=== PATIENT | male | born 1970 | race Caucasian/White ===

== ENCOUNTER 2022-01-25 08:51 | Inpatient (IN) ==
[2022-01-25] MEDS ORDERED: OPTIRAY 320 125ml IV ONE ×2 (09:03→10:25)
--- NOTE | 2022-01-25 09:08 | CT Scan Report ---
CT OF THE HEAD WITHOUT CONTRAST CLINICAL HISTORY: Stroke Like Symptoms. Dizzy. COMPARISON STUDY: No previous studies for comparison. TECHNIQUE: Helical axial images of the head were obtained without IV contrast. Automated exposure con trol was utilized for the study. A dose lowering technique was utilized adhering to the principles o f ALARA. FINDINGS: No acute intracranial hemorrhage, midline shift or mass effect is present. The ventricular system is unremarkable. A 8 mm hypodense focus within the anterior right thalamus is noted. Hypodensi ty within the braden is likely artifactual. The basal cisterns are patent. No extra-axial collections a re present. There are no findings to suggest acute dural sinus thrombosis or acute territorial infarc t. No significant calvarial abnormalities are present. Visualized portions of the sinuses and mastoid air cells are clear. IMPRESSION: 1. No acute intracranial findings. 2. 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 ACT 112: Negative or not required by law. Electronically signed by: Hugo Medeiros M.D. 01/25/2022 9:06 AM
[2022-01-25] MEDS ORDERED: LABETALOL HCL IV 5 MG/ML 20ML IV ONE (09:12)
[2022-01-25] MEDS ORDERED: LABETALOL HCL IV 5 MG/ML 20ML IV STA ×4 (09:12→11:13)
--- NOTE | 2022-01-25 09:14 | CT Scan Report ---
CT ANGIOGRAPHY OF THE NECK WITH CONTRAST CLINICAL HISTORY: Stroke Like Symptoms. Dizziness. Nausea. COMPARISON STUDY: No previous studies for comparison. Technique: CT angiography of the carotid and vertebral arteries was obtained using Optiray and 3D rec onstruction on an independent workstation. NASCET criteria was utilized. Automated exposure control was utilized for the study. A dose lowering technique was utilized adhering to the principles of ALA RA. CT DOSE: 1299.11 mGy.cm Findings: A segmental pulmonary embolus within the left upper lobe is partially imaged on this examin ation. No additional pulmonary emboli are identified within visualized portions of the upper chest. T here is no cervical lymphadenopathy. No acute cervical spine fracture is noted. No suspicious lesions are identified within the visualized skeletal structures. The bilateral common carotid, cervical int ernal carotid and vertebral arteries are patent. There is no stenosis. There is mild plaque within th e proximal bilateral internal carotid arteries. CTA of the head will be reported separately. Linear d ensities within the proximal bilateral cervical internal carotid arteries are probably artifactual. IMPRESSION: 1. Partially visualized segmental pulmonary embolus within the left upper lobe. A PE protocol chest C T could be obtained for further evaluation. 2. No stenosis within the bilateral common carotid, cervical internal carotid or vertebral arteries. Minimal plaque. ACT 112: Negative or not required by law. Electronically signed by: Hugo Medeiros M.D. 01/25/2022 9:12 AM
--- NOTE | 2022-01-25 09:16 | CT Scan Report ---
CTA ANGIOGRAPHY OF THE HEAD CLINICAL HISTORY: Stroke Like Symptoms. Dizziness. Vertigo. COMPARISON STUDY: No previous studies for comparison. TECHNIQUE: Helical axial images of the head were obtained following uneventful intravenous administr ation of 120 cc of Optiray. Sagittal and coronal reconstructions were viewed as well as maximal inten sity projections on an independent 3-D workstation. Automated exposure control was utilized for the study. A dose lowering technique was utilized adhering to the principles of ALARA. FINDINGS: Please note that the head CT will be reported separately. Brain volume is normal. Ventricul ar system is normal. Basal cisterns are patent. 8 mm hypodensity within the anterior right thalamus i s suggestive of an old infarct. The bilateral M1, M2, A1 and A2 segments are patent. There is moderat e calcified plaque within the bilateral cavernous carotids without stenosis. Posterior circulation is intact. There is no central vessel occlusion. There is no intracranial aneurysm. No dissection is id entified within the intracranial vessels. IMPRESSION: 1. No vessel occlusion. No intracranial aneurysm. 2. 8 mm hypodensity within the anterior right thalamus suggestive of an old infarct. ACT 112: Negative or not required by law. Electronically signed by: Hugo Medeiros M.D. 01/25/2022 9:15 AM
--- NOTE | 2022-01-25 09:17 | XRay Report ---
XR chest 1V portable CLINICAL HISTORY: Stroke Like Symptoms COMPARISON STUDY: Chest radiograph May 04, 2019. FINDINGS: Lung volumes are normal. Lungs are clear. There is no pneumothorax or pleural effusion. Car diac size is normal. Mediastinal contours are normal. There is no evidence for pulmonary edema. IMPRESSION: No acute cardiopulmonary findings. ACT 112: Negative or not required by law. Electronically signed by: Hugo Medeiros M.D. 01/25/2022 9:16 AM
--- NOTE | 2022-01-25 09:23 | Emergency Department Note ---
Impression & Plan Acute CVA (cerebrovascular accident), Acute left-sided weakness, Slurred speech, Pulmonary emboli ED Provider Note NAME: YARY FISHER AGE: 51 SEX: M : 1970 ARRIVES VIA: Ambulance INFORMANT: [Patient][ems, ] ED PROVIDER(S): [Jim Edmond MD] Patient first seen by me in the ambulance bay at 8:52 AM CHIEF COMPLAINT: Stroke HISTORY OF PRESENT ILLNESS: The patient is a 51-year-old male who woke up around 630 this morning. At around 7 AM, 1 hour and 52 minutes ago, he noticed a left facial droop and left arm and leg weakness. He slumped out of his chair. EMS was called. EMS reports left-sided weakness and a left facial droop. Blood sugar was 121. They were asking for a stroke alert, this was activated. Upon arrival in our ED, the patient has had marked improvement. The facial droop has resolved. He is still a bit weak in the left arm but his left leg feels strong. The patient has a history of some borderline hypertension, he is on no med ications though. The patient has no history of previous stroke. He has had a headache over the last couple of weeks but otherwise, has felt well. There has been no recent cough or cold or congestion. No shortness of breath or chest pain. No fever, no diarrhea or vomiting. Of note, about a week ago, the patient had something fall onto his left calf and he has been sore in the left calf ever since. He did not notice a hematoma or leg swelling. REVIEW OF SYSTEMS: See HPI for pertinent positives and negatives. A total of ten systems were reviewed and were otherwise negative. PMHx/PSHx: See Below SOCIAL HISTORY: See Below. PHYSICAL EXAM: GENERAL: Patient is in no acute distress. HEENT: No acute trauma, normocephalic atraumatic, mucous membranes moist, no nasal congestion, no scleral icterus. NECK: No stridor, no adenopathy, no meningismus, trachea is midline. LUNGS: Clear to auscultation bilaterally, no wheeze, no rhonchi, breath sounds equal. HEART: Without murmurs gallops or rubs, regular rate and rhythm. ABDOMEN: Soft, nontender, bowel sounds positive, no peritonitis. EXTREMITIES: No cyanosis or edema, full range of motion of all the joints without pain or difficulty, no signs for acute trauma. NEUROLOGIC: Awake and alert, oriented x3. The patient currently has no facial droop, there is a very subtle speech slur noted. There is no extremity drift or cerebellar dysfunction. Stroke scale value of 1 SKIN: No rash, no jaundice, no diaphoresis. DIFFERENTIAL DIAGNOSIS: Infection, dehydration, metabolic abnormality, hypo/hyperglycemia, electrolyte disturbance, anemia, hypoxia, cardiac sources, intracerebral event, toxicologic issues, stroke, TIA, as well as other pathologies. EMERGENCY DEPARTMENT COURSE/PROCEDURES: ECG: Indication was a stroke. The ECG shows a normal sinus rhythm with a rate of 72. LVH is present. There is no ST elevation, no PVCs. The QTc is 462. Continuous Cardiac Monitoring: An order was placed for continuous cardiac monitoring. The monitor shows a rate of 75 with normal sinus rhythm. Critical Care Note: I have personally spent 66 minutes of critical care time in the direct management of this patient. This includes bedside care, interpretation of diagnostic studies, and testing, discussion with consultants, patient, and family members, and other required patient management activities. This 66 minutes is in excess of all separately billable procedures. MEDICAL DECISION MAKING: There is no leukocytosis or concerning anemia. There is a normal platelet count. No coagulopathy. No renal failure, no significant electrolyte abnormality. No liver enzyme elevation. ECG shows a normal sinus rhythm, no ischemia. Cardiac enzyme testing x1 is not consistent with acute cardiac injury. COVID test returned negative. Chest x-ray did not show mediastinal widening, pneumonia or pneumothorax. Brain CT showed a potential old stroke, no acute bleed or mass-effect. CT angio of the head and neck were performed and there was no significant stenosis or clot visualized. Chest CT does show multiple bilateral pulmonary emboli. Left leg ultrasound is currently pending. The patient presents with left sided weakness and slurred speech. By the time he returned from CT, his symptoms had almost completely resolved. His stroke scale was 1. Within a very short timeframe, his stroke scale quickly improved to 0. A stroke alert was called given the patient's presentation. He was seen by the stroke neurologist from [facility]. This was accomplished via tele medicine. As the patient had improved and was back to baseline, TNKase was not recommended. On the patient's CT angio of his neck, a small pulmonary embolus was noted. For this reason, a CT of the chest was performed showing multiple bilateral pulmonary emboli. I was able to obtain an MRI here in the ED, he has suffered a small stroke based on the MRI results. The patient's blood pressure has been elevated since his arrival in the ED. He has received multiple doses of IV labetalol. He was ordered for dose of IV hydralazine. The patient received oral aspirin. He was given a bolus of heparin and placed on a heparin drip. The heparin was ordered because of the pulmonary emboli diagnosed. In short, the patient has completely improved with regard to his strokelike symptoms. Given the findings of stroke as well as PE, a cardiac septal defect is a real concern. The patient is aware of all his findings, I have spoken to the patient and his at length. I have spoken to the [facility] neurologist, I did speak with case management, the on-call hospitalist was consulted. Past Med/Surg History Medical History History of COVID-19 Perforated diverticulitis Surgical History (Updated 01/25/22 @ 11:52 by Dora Serrato PA-C) H/O oral surgery H/O vasectomy History of colonoscopy History of inguinal hernia repair Family History (Updated 01/25/22 @ 12:44 by Dora Serrato PA-C) Father Diabetes Hypertension Denies family history of Colon cancer Ovarian cancer Prostate cancer Clotting disorder Myocardial infarction Breast cancer Stroke Social History Smoking Status: Never smoker Hx Alcohol Use: No Hx Substance Use: No Preferred Language: Syriac Communication Ability: Effective Labor Operator Required: No Beliefs That Will Affect Care: None marital status: Current Living Situation: Spouse current occupational status: employed Other Information That Helps Us Care for You: No Feels Safe at Home: Yes Safety Concerns: Feels Safe At This Time Assistive Devices: None Allergies Allergies Allergy/AdvReac Type Severity Reaction Status Date / Time No Known Allergies Allergy Unverified 01/25/22 10:06 Home Meds Home Medications Medication Instructions Recorded Confirmed No Known Home Medications 01/25/22 01/25/22 Results & Data (ED) Vital Signs Vital Signs - 24 hr 01/25/22 08:57 01/25/22 09:06 01/25/22 09:10 Pulse Rate 75 84 82 Pulse Rate from SpO2 Sensor 84 Pulse Rhythm Regular Pulse Strength Normal Respiratory Rate 18 25 H 16 Respiratory Effort / Characteristics Non-Labored Spontaneous Respiratory Depth Normal Respiratory Pattern Regular Blood Pressure 164/104 H 162/105 H 172/109 H Blood Pressure [Right Arm] Blood Pressure Mean 124 124 130 Blood Pressure Mean [Right Arm] Blood Pressure Position Sitting Pulse Oximetry 97 96 Oxygen Delivery Method Room Air Sepsis Recent Fever Within 48 Hours No Sepsis New/Unexplained Change in Mental Status No Sepsis Action Taken by Nursing No Action Required 01/25/22 09:17 01/25/22 09:25 01/25/22 09:30 Pulse Rate 75 66 70 Pulse Rate from SpO2 Sensor 74 67 Pulse Rhythm Pulse Strength Respiratory Rate 17 25 H 27 H Respiratory Effort / Characteristics Respiratory Depth Respiratory Pattern Blood Pressure 164/107 H 155/107 H 162/102 H Blood Pressure [Right Arm] Blood Pressure Mean 126 123 122 Blood Pressure Mean [Right Arm] Blood Pressure Position Pulse Oximetry 95 97 Oxygen Delivery Method Sepsis Recent Fever Within 48 Hours Sepsis New/Unexplained Change in Mental Status Sepsis Action Taken by Nursing 01/25/22 09:45 01/25/22 09:55 01/25/22 10:03 Pulse Rate 71 65 65 Pulse Rate from SpO2 Sensor 71 66 65 Pulse Rhythm Pulse Strength Respiratory Rate 20 22 19 Respiratory Effort / Characteristics Respiratory Depth Respiratory Pattern Blood Pressure 154/106 H 157/106 H 148/91 H Blood Pressure [Right Arm] Blood Pressure Mean 122 123 110 Blood Pressure Mean [Right Arm] Blood Pressure Position Pulse Oximetry 97 98 99 Oxygen Delivery Method Sepsis Recent Fever Within 48 Hours Sepsis New/Unexplained Change in Mental Status Sepsis Action Taken by Nursing 01/25/22 10:41 Pulse Rate Pulse Rate from SpO2 Sensor Pulse Rhythm Pulse Strength Respiratory Rate Respiratory Effort / Characteristics Respiratory Depth Respiratory Pattern Blood Pressure Blood Pressure [Right Arm] 149/103 H Blood Pressure Mean Blood Pressure Mean [Right Arm] 118 Blood Pressure Position Pulse Oximetry Oxygen Delivery Method Sepsis Recent Fever Within 48 Hours Sepsis New/Unexplained Change in Mental Status Sepsis Action Taken by Correction Medications Current Medication List: was personally reviewed by me Laboratory Data Attestation: I reviewed the patient's lab results. Result diagrams: 01/25/22 09:04 01/25/22 09:04 Lab Results 01/25/22 01/25/22 01/25/22 Range/Units 09:04 09:04 09:04 WBC 7.68 (4.8-10.8) K/uL RBC 4.52 L (4.7-6.1) M/uL Hgb 14.1 (14.0-18.0) g/dL Hct 41.4 L (42-52) % MCV 91.6 (80-100) fL MCH 31.2 (25-34) pg MCHC 34.1 (32-36) g/dL RDW Std Deviation 45.0 (36.4-46.3) fL RDW Coeff of Omid 13.7 (11.5-14.5) % Plt Count 179 (130-400) K/uL MPV 10.3 (7.4-10.4) fL Immature Gran % (Auto) 0.7 % Neut % (Auto) 52.2 % Lymph % (Auto) 30.2 % [place] % (Auto) 14.8 % Eos % (Auto) 1.8 % Baso % (Auto) 0.3 % Neut # (Auto) 4.01 (1.4-6.5) K/uL Lymph # (Auto) 2.32 (1.2-3.4) K/uL [place] # (Auto) 1.14 H (0.11-0.59) K/uL Eos # (Auto) 0.14 (0-0.5) K/uL Baso # (Auto) 0.02 (0-0.2) K/uL Immature Gran # (Auto) 0.05 H (0.00-0.02) K/uL PT 11.0 (9.0-12.0) Seconds INR 1.0 (0.9-1.1) APTT 25.8 (21.0-31.0) Seconds PTT Ratio 0.9 Sodium (136-145) mmol/L Potassium (3.5-5.1) mmol/L Chloride (98-107) mmol/L Carbon Dioxide (21-32) mmol/L Anion Gap (3-11) BUN (6-23) mg/dl Creatinine (0.6-1.4) mg/dl Est Cr Clr Drug Dosing ml/min Est GFR ( Amer) ml/min Est GFR (Non-Af Amer) ml/min BUN/Creatinine Ratio (10-20) Glucose (70-99(Fasting)) mg/dl Calcium (8.5-10.1) mg/dl Magnesium (1.7-2.4) mg/dl Total Bilirubin (0.2-1.0) mg/dl AST (13-39) U/L ALT (7-52) U/L Alkaline Phosphatase (34-104) U/L Troponin I High Sens (0-20) pg/ml Total Protein (6.0-8.3) gm/dl Albumin (3.4-5.0) gm/dl Globulin (2.5-4.0) gm/dl Albumin/Globulin Ratio (0.9-2) Blood Type O Positive Antibody Screen NEGATIVE 01/25/22 Range/Units 09:04 WBC (4.8-10.8) K/uL RBC (4.7-6.1) M/uL Hgb (14.0-18.0) g/dL Hct (42-52) % MCV (80-100) fL MCH (25-34) pg MCHC (32-36) g/dL RDW Std Deviation (36.4-46.3) fL RDW Coeff of Omid (11.5-14.5) % Plt Count (130-400) K/uL MPV (7.4-10.4) fL Immature Gran % (Auto) % Neut % (Auto) % Lymph % (Auto) % King[place] % (Auto) % Eos % (Auto) % Baso % (Auto) % Neut # (Auto) (1.4-6.5) K/uL Lymph # (Auto) (1.2-3.4) K/uL King[place] # (Auto) (0.11-0.59) K/uL Eos # (Auto) (0-0.5) K/uL Baso # (Auto) (0-0.2) K/uL Immature Gran # (Auto) (0.00-0.02) K/uL PT (9.0-12.0) Seconds INR (0.9-1.1) APTT (21.0-31.0) Seconds PTT Ratio Sodium 135 L (136-145) mmol/L Potassium 3.9 (3.5-5.1) mmol/L Chloride 104 (98-107) mmol/L Carbon Dioxide 26 (21-32) mmol/L Anion Gap 5 (3-11) BUN 17 (6-23) mg/dl Creatinine 0.92 (0.6-1.4) mg/dl Est Cr Clr Drug Dosing 122.3 ml/min Est GFR ( Amer) 111.2 ml/min Est GFR (Non-Af Amer) 96.0 ml/min BUN/Creatinine Ratio 18.5 (10-20) Glucose 128 H (70-99(Fasting)) mg/dl Calcium 8.5 (8.5-10.1) mg/dl Magnesium 2.1 (1.7-2.4) mg/dl Total Bilirubin 1.0 (0.2-1.0) mg/dl AST 21 (13-39) U/L ALT 27 (7-52) U/L Alkaline Phosphatase 61 (34-104) U/L Troponin I High Sens 4.5 (0-20) pg/ml Total Protein 6.5 (6.0-8.3) gm/dl Albumin 3.9 (3.4-5.0) gm/dl Globulin 2.6 (2.5-4.0) gm/dl Albumin/Globulin Ratio 1.5 (0.9-2) Blood Type Antibody Screen Administered Medications Discontinued Medications Aspirin (Aspirin Chew 324 Mg) 324 mg PO NOW STA Stop: 01/25/22 10:07 Last Admin: 01/25/22 10:11 Dose: 324 mg Documented by: [id number] Ioversol (Optiray 320 125ml) 120 ml IV ONCE ONE Stop: 01/25/22 09:04 Last Admin: 01/25/22 09:04 Dose: 120 ml Documented by: [id number] Ioversol (Optiray 320 125ml) 120 ml IV ONCE ONE Stop: 01/25/22 10:26 Last Admin: 01/25/22 10:26 Dose: 120 ml Documented by: [id number] Labetalol HCl (Labetalol Hcl Iv 5 Mg/Ml 20ml) Confirm Administered Dose 5 mg IV .STK-MED ONE Stop: 01/25/22 09:13 Last Admin: 01/25/22 09:14 Dose: Not Given Documented by: [id number] Labetalol HCl (Labetalol Hcl Iv 5 Mg/Ml 20ml) 10 mg IV NOW STA Stop: 01/25/22 09:13 Last Admin: 01/25/22 09:14 Dose: 10 mg Documented by: [id number] Cosigned by: [id number] Labetalol HCl (Labetalol Hcl Iv 5 Mg/Ml 20ml) 10 mg IV NOW STA Stop: 01/25/22 09:26 Last Admin: 01/25/22 09:33 Dose: 10 mg Documented by: [id number] Cosigned by: [id number] Labetalol HCl (Labetalol Hcl Iv 5 Mg/Ml 20ml) 10 mg IV NOW STA Stop: 01/25/22 10:06 Last Admin: 01/25/22 10:41 Dose: 10 mg Documented by: [id number] Cosigned by: [id number] Labetalol HCl (Labetalol Hcl Iv 5 Mg/Ml 20ml) 5 mg IV NOW STA Stop: 01/25/22 11:14 Last Admin: 01/25/22 11:25 Dose: 5 mg Documented by: [id number] Cosigned by: [id number] Imaging Data Radiologist's Impression: Chest X-Ray 01/25/22 08:44 XR chest 1V portable CLINICAL HISTORY: Stroke Like Symptoms COMPARISON STUDY: Chest radiograph May 04, 2019. FINDINGS: Lung volumes are normal. Lungs are clear. There is no pneumothorax or pleural effusion. Cardiac size is normal. Mediastinal contours are normal. There is no evidence for pulmonary edema. IMPRESSION: No acute cardiopulmonary findings. ACT 112: Negative or not required by law. Electronically signed by: Hugo Medeiros M.D. 01/25/2022 9:[address] 01/25/22 08:44 CT OF THE HEAD WITHOUT CONTRAST CLINICAL HISTORY: Stroke Like Symptoms. Dizzy. COMPARISON STUDY: No previous studies for comparison. TECHNIQUE: Helical axial images of the head were obtained without IV contrast. Automated exposure control was utilized for the study. A dose lowering technique was utilized adhering to the principles of ALARA. FINDINGS: No acute intracranial hemorrhage, midline shift or mass effect is present. The ventricular system is unremarkable. A 8 mm hypodense focus within the anterior right thalamus is noted. Hypodensity within the braden is likely artifactual. The basal cisterns are patent. No extra-axial collections are present. There are no findings to suggest acute dural sinus thrombosis or acute territorial infarct. No significant calvarial abnormalities are present. Visualized portions of the sinuses and mastoid air cells are clear. IMPRESSION: 1. No acute intracranial findings. 2. 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 ACT 112: Negative or not required by law. Electronically signed by: Hugo Medeiros M.D. 01/25/2022 9:06 AM Head CTA 01/25/22 08:44 CTA ANGIOGRAPHY OF THE HEAD CLINICAL HISTORY: Stroke Like Symptoms. Dizziness. Vertigo. COMPARISON STUDY: No previous studies for comparison. TECHNIQUE: Helical axial images of the head were obtained following uneventful intravenous administration of 120 cc of Optiray. Sagittal and coronal reconstructions were viewed as well as maximal intensity projections on an independent 3-D workstation. Automated exposure control was utilized for the study. A dose lowering technique was utilized adhering to the principles of ALARA. FINDINGS: Please note that the head CT will be reported separately. Brain volume is normal. Ventricular system is normal. Basal cisterns are patent. 8 mm hypodensity within the anterior right thalamus is suggestive of an old infarct. The bilateral M1, M2, A1 and A2 segments are patent. There is moderate calcified plaque within the bilateral cavernous carotids without stenosis. Posterior cir culation is intact. There is no central vessel occlusion. There is no intracranial aneurysm. No dissection is identified within the intracranial vessels. IMPRESSION: 1. No vessel occlusion. No intracranial aneurysm. 2. 8 mm hypodensity within the anterior right thalamus suggestive of an old infarct. ACT 112: Negative or not required by law. Electronically signed by: Hugo Medeiros M.D. 01/25/2022 9:15 AM Neck CTA 01/25/22 08:44 CT ANGIOGRAPHY OF THE NECK WITH CONTRAST CLINICAL HISTORY: Stroke Like Symptoms. Dizziness. Nausea. COMPARISON STUDY: No previous studies for comparison. Technique: CT angiography of the carotid and vertebral arteries was obtained using Optiray and 3D reconstruction on an independent workstation. NASCET criteria was utilized. Automated exposure control was utilized for the study. A dose lowering technique was utilized adhering to the principles of ALARA. CT DOSE: 1299.11 mGy.cm Findings: A segmental pulmonary embolus within the left upper lobe is partially imaged on this examination. No additional pulmonary emboli are identified within visualized portions of the upper chest. There is no cervical lymphadenopathy. No acute cervical spine fracture is noted. No suspicious lesions are identified within the visualized skeletal structures. The bilateral common carotid, cerv ical internal carotid and vertebral arteries are patent. There is no stenosis. There is mild plaque within the proximal bilateral internal carotid arteries. CTA of the head will be reported separately. Linear densities within the proximal bilateral cervical internal carotid arteries are probably artifactual. IMPRESSION: 1. Partially visualized segmental pulmonary embolus within the left upper lobe. A PE protocol chest CT could be obtained for further evaluation. 2. No stenosis within the bilateral common carotid, cervical internal carotid or vertebral arteries. Minimal plaque. ACT 112: Negative or not required by law. Electronically signed by: Hugo Medeiros M.D. 01/25/2022 9:12 AM Brain MRI 01/25/22 10:05 MRI OF THE BRAIN WITHOUT CONTRAST CLINICAL HISTORY: Stroke. Left-sided weakness. COMPARISON STUDY: Head CT and CTA of the head performed earlier today. TECHNIQUE: Utilizing a 1.5 Winnie magnet and dedicated coil, multiplanar, multiecho imaging of the brain was performed without IV contrast. FINDINGS: Note is made of a 3.3 x 1.8 cm focus of restricted diffusion within the right parietal lobe shown on axial diffusion-weighted sequence image 17 of 26. This is hypointense on the ADC map. No additional foci of restricted diff usion are noted. There is no significant mass effect. No associated cytotoxic edema is identified. There is 7 mm infarct within the right thalamus. Ventricular system is normal. Basal cisterns are patent. There are no extra- axial collections. No intracranial masses are identified on this unenhanced examination. Calvarial signal is within normal limits. Orbits are unremarkable. There is no evidence for sinusitis. Minimal ethmoid sinus mucosal thickening is present. IMPRESSION: 1. 3.3 x 1.8 cm acute infarct within the right parietal lobe. No mass effect. No acute hemorrhage. No cytotoxic edema. 2. Old 7 mm infarct within the right thalamus. ACT 112: Negative or not required by law. Electronically signed by: Hugo Medeiros M.D. 01/25/2022 11:29 AM Chest CTA 01/25/22 10:05 CT ANGIOGRAPHY OF THE CHEST, PULMONARY EMBOLUS PROTOCOL CLINICAL HISTORY: Pulmonary emboli. COMPARISON STUDY: Chest radiograph performed earlier today and May 04, 2019. TECHNIQUE: Following IV administration of 120 mL of Optiray, helical axial images of the chest were obtained utilizing the pulmonary embolus protocol. Maximal intensity projections and sagittal and coronal reformats were viewed on an independent 3D workstation. IV contrast was administered without complicati on. Automated exposure control was utilized for the study. A dose lowering technique was utilized adhering to the principles of ALARA. CT DOSE: 931.19 mGy.cm FINDINGS: There are multiple segmental and subsegmental pulmonary emboli within the lungs. These are acute appearing. The largest is within a segmental branch to the anterior segment of the left upper lobe. No central pulmonary embolus is present. No CT evidence for right heart strain. There is no pulmonary infarct. Size of the heart is normal. There is no pericardial effusion. No enlarged thoracic lymph nodes are present. A 5 mm subpleural left lower lobe nodule is similar to CT of December 09, 2013. This is benign given stability. A few small calcified granulomas are present. Central airways are patent. Hepatic steatosis is noted. A 1.2 cm cyst within the upper pole of the right kidney is incidentally noted. There is contrast within the renal collecting systems from recent contrast-enhanced CT. IMPRESSION: 1. Multiple segmental and subsegmental pulmonary emboli. 2. No pulmonary infarcts. 3. Hepatic steatosis. ACT 112: Negative or not required by law. Electronically signed by: Hugo Medeiros M.D. 01/25/2022 10:49 AM Discharge Plan Visit Data Chief Complaint: Stroke Alert ED Provider: Jim Edmond Discharge Problem: Acute CVA (cerebrovascular accident), Acute left-sided weakness, Slurred speech, Pulmonary emboli Patient Disposition: Admitted As Inpatient Condition: Serious Discharge Instructions Interventions: ED Discharge Assessment Last Done: 01/25/22 12:10
[2022-01-25 09:25] LABS: Basophils # (auto) 0.02 K/uL (0-0.2); Basophils % (auto) 0.3 %; Eosinophils # (auto) 0.14 K/uL (0-0.5); Eosinophils % (auto) 1.8 %; Hematocrit (blood only) 41.4 % (42-52); Hemoglobin 14.1 g/dL (14.0-18.0); Immature Granulocytes # (auto) 0.05 K/uL (0.00-0.02); Immature Granulocytes % (auto) 0.7 %; Lymphocytes # (auto) 2.32 K/uL (1.2-3.4); Lymphocytes % (auto) 30.2 %; Mean Corpuscular Hemoglobin 31.2 pg (25-34); Mean Corpuscular Hgb Conc 34.1 g/dL (32-36); Mean Corpuscular Volume 91.6 fL (80-100); Mean Platelet Volume 10.3 fL (7.4-10.4); Monocytes # (auto) 1.14 K/uL (0.11-0.59); Monocytes % (auto) 14.8 %; Neutrophils # (auto) 4.01 K/uL (1.4-6.5); Neutrophils % (auto) 52.2 %; Platelet Count 179 K/uL (130-400); RDW Coefficient of Variation 13.7 % (11.5-14.5); Red Blood Count 4.52 M/uL (4.7-6.1); White Blood Count 7.68 K/uL (4.8-10.8)
[2022-01-25 09:27] LABS: Partial Thromboplastin Ratio 0.9; Partial Thromboplastin Time 25.8 Seconds (21.0-31.0)
[2022-01-25 09:41] LABS: Potassium 3.9 mmol/L (3.5-5.1)
[2022-01-25 09:42] LABS: Albumin Globulin Ratio 1.5 (0.9-2); Albumin Level 3.9 gm/dl (3.4-5.0); BUN Creatinine Ratio 18.5 (10-20); Calcium 8.5 mg/dl (8.5-10.1); Creatinine Clr Calc Pharmacy 122.3 ml/min; Est GFR (African American) 111.2 ml/min; Globulin 2.6 gm/dl (2.5-4.0); Magnesium 2.1 mg/dl (1.7-2.4); Total Protein 6.5 gm/dl (6.0-8.3)
[2022-01-25 09:45] LABS: Troponin I High Sensitivity 4.5 pg/ml (0-20)
[2022-01-25] MEDS ORDERED: ASPIRIN CHEW 324 MG PO STA (10:06)
--- NOTE | 2022-01-25 10:44 | Electrocardiogram Report ---
Test Reason : Blood Pressure : / mmHG Vent. Rate : 072 BPM Atrial Rate : 072 BPM P-R Int : 166 ms QRS Dur : 096 ms QT Int : 422 ms P-R-T Axes : 061 -07 022 degrees QTc Int : 462 ms Poor data quality, interpretation may be adversely affected Normal sinus rhythm Voltage criteria for left ventricular hypertrophy Abnormal ECG No previous ECGs available Confirmed by Da Spear ([id number]) on 01/25/2022 10:44:15 AM Referred By: REFERRED SELF Confirmed By:Da Spear
--- NOTE | 2022-01-25 10:51 | CT Scan Report ---
CT ANGIOGRAPHY OF THE CHEST, PULMONARY EMBOLUS PROTOCOL CLINICAL HISTORY: Pulmonary emboli. COMPARISON STUDY: Chest radiograph performed earlier today and May 04, 2019. TECHNIQUE: Following IV administration of 120 mL of Optiray, helical axial images of the chest were o btained utilizing the pulmonary embolus protocol. Maximal intensity projections and sagittal and cor onal reformats were viewed on an independent 3D workstation. IV contrast was administered without co mplication. Automated exposure control was utilized for the study. A dose lowering technique was ut ilized adhering to the principles of ALARA. CT DOSE: 931.19 mGy.cm FINDINGS: There are multiple segmental and subsegmental pulmonary emboli within the lungs. These are acute appearing. The largest is within a segmental branch to the anterior segment of the left upper lobe. No central pulmonary embolus is present. No CT evidence for right heart strain. There is no pul monary infarct. Size of the heart is normal. There is no pericardial effusion. No enlarged thoracic l ymph nodes are present. A 5 mm subpleural left lower lobe nodule is similar to CT of December 09, 2013. Thi s is benign given stability. A few small calcified granulomas are present. Central airways are patent . Hepatic steatosis is noted. A 1.2 cm cyst within the upper pole of the right kidney is incidentally noted. There is contrast within the renal collecting systems from recent contrast-enhanced CT. IMPRESSION: 1. Multiple segmental and subsegmental pulmonary emboli. 2. No pulmonary infarcts. 3. Hepatic steatosis. ACT 112: Negative or not required by law. Electronically signed by: Hugo Medeiros M.D. 01/25/2022 10:49 AM
--- NOTE | 2022-01-25 11:06 | History & Physical Report ---
Date of Service January 25, 2022 Assessment & Plan (1) Acute CVA (cerebrovascular accident): (2) Bilateral pulmonary embolism: (3) History of COVID-19: (4) HTN (hypertension): Plan: 51-year-old male without any known significant medical problems presented to ED due to acute onset of strokelike symptoms with generalized weakness, slurred speech and left facial droop. Patient's symptoms resolved at 930, 1 hour and 50 minutes from onset. Given resolution of symptoms he is not a TNKase candidate. Also not a TNKase candidate secondary to evidence of acute bilateral pulmonary embolism. Currently no neurofocal deficits. MRI confirms acute right parietal infarct, 3.3 x 1.8 cm, prior right thalamic infarct Acute CVA -right parietal infarct Evidence of old CVA on imaging Admit to PCU Consult neurology Obtain echocardiogram to eval for possible embolic event Head and neck CTA unremarkable for carotid intracranial arteries Per telemetry neurologist initiate ASA 81 mg daily and atorvastatin 80 mg daily Lipid panel, A1c in a.m. PT, OT, ST Factor V Leiden, protein C&S deficiency eval Patient significantly hypertensive in ED requiring a total of 35 mg of IV labetalol Patient reports evidence of blood pressure elevated in outpatient setting, but does not take any medications on a regular basis Allow permissive hypertension for initial 24 hours Will initiate losartan 25 mg in morning Bilateral PE Hx of COVID-19 - approx 3 wks ago, resolved on own ? if related to covid -19 will tx with IV heparin gtt protein c, s and factor V ordered HTN does not meet criteria for emergency, but significantly elevated pt reports BP elevated past few times giving blood allow permissive HTN for 24 hours start losartan 25mg tomorrow will need OP BMP in 1 week DVT ppx: IV Heparin Dispo: PCU - pt needs close follow up with PCP at OP, does not f/u with PCP on regular basis FULL CODE PCP: Anusha Johnson, unsure of provider, previously was Dr. Carpio Patient was seen and examined in collaboration with Dr. 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 Primary Care Provider: Karlo Duke, DO This is a 51 yr old M who has no known PMH who presents to ED 2/2 to stroke like sx. at 0645 he was sitting drinking coffee when he developed acute onset generalized weakness, "felt like no energy," slurred speech and left facial droop. They called EMS and brought to ED. When he arrived to the ED his sx started to resolve. 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 He recently had covid-19 approx 2- 3 weeks ago. His sx resolved with conservative treatment and nyquil. His also was ill. She is present at bedside. Their home test was positive. He denies any recent tick bites. He denies f/c/s, dizziness, lightheaded, change in vision/hearing, chest pain, sob, cough, uri sx, n/v/d, abd pain, change in bowel or urinary habits. He denies any recent travel. He did recently drop and object on his L leg approx 1 week ago. Since then he has been having soreness to his calf and hamstring. He denies redness or swelling. He denies prior hx of HTN, but states he did give blood a few times and it was high then. Allergies Allergy/AdvReac Type Severity Reaction Status Date / Time No Known Allergies Allergy Unverified 01/25/22 10:06 Home Medications Medication Instructions Recorded Confirmed Type No Known Home Medications 01/25/22 01/25/22 History Past Med/Surg History Medical History History of COVID-19 Perforated diverticulitis Surgical History (Updated 01/25/22 @ 11:52 by Dora Serrato PA-C) H/O oral surgery H/O vasectomy History of colonoscopy History of inguinal hernia repair Family History (Updated 01/25/22 @ 12:44 by Dora Serrato PA-C) Father Diabetes Hypertension Denies family history of Colon cancer Ovarian cancer Prostate cancer Clotting disorder Myocardial infarction Breast cancer Stroke Social History Smoking Status: Never smoker Hx Alcohol Use: No Hx Substance Use: No Preferred Language: Khmer Communication Ability: Effective Odd Bundle Worker Required: No Beliefs That Will Affect Care: None marital status: Current Living Situation: Spouse current occupational status: employed Other Information That Helps Us Care for You: No Feels Safe at Home: Yes Safety Concerns: Feels Safe At This Time Assistive Devices: None Review of Systems Review of Systems: All systems reviewed & are unremarkable except as noted in HPI & below Physical Exam Physical Exam: please refer to Dr. Goodwin addendum for physical exam findings Results & Data Results & Data ([facility]) Vital Signs (Past 12 Hours) Vital Signs Pulse Resp BP BP Pulse Ox 01/25/22 10:41 149/103 H 01/25/22 10:03 65 19 148/91 H 99 01/25/22 09:55 65 22 157/106 H 98 01/25/22 09:45 71 20 154/106 H 97 01/25/22 09:30 70 27 H 162/102 H 01/25/22 09:25 66 25 H 155/107 H 97 01/25/22 09:17 75 17 164/107 H 95 01/25/22 09:10 82 16 172/109 H 01/25/22 09:06 84 25 H 162/105 H 96 01/25/22 08:57 75 18 164/104 H 97 Diagnostic Findings Chest X-Ray 01/25/22 08:44 XR chest 1V portable CLINICAL HISTORY: Stroke Like Symptoms COMPARISON STUDY: Chest radiograph May 04, 2019. FINDINGS: Lung volumes are normal. Lungs are clear. There is no pneumothorax or pleural effusion. Cardiac size is normal. Mediastinal contours are normal. There is no evidence for pulmonary edema. IMPRESSION: No acute cardiopulmonary findings. ACT 112: Negative or not required by law. Electronically signed by: Hugo Medeiros M.D. 01/25/2022 9:[address] 01/25/22 08:44 CT OF THE HEAD WITHOUT CONTRAST CLINICAL HISTORY: Stroke Like Symptoms. Dizzy. COMPARISON STUDY: No previous studies for comparison. TECHNIQUE: Helical axial images of the head were obtained without IV contrast. Automated exposure control was utilized for the study. A dose lowering technique was utilized adhering to the principles of ALARA. FINDINGS: No acute intracranial hemorrhage, midline shift or mass effect is present. The ventricular system is unremarkable. A 8 mm hypodense focus within the anterior right thalamus is noted. Hypodensity within the braden is likely artifactual. The basal cisterns are patent. No extra-axial collections are present. There are no findings to suggest acute dural sinus thrombosis or acute territorial infarct. No significant calvarial abnormalities are present. Visualized portions of the sinuses and mastoid air cells are clear. IMPRESSION: 1. No acute intracranial findings. 2. 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 ACT 112: Negative or not required by law. Electronically signed by: Hugo Medeiros M.D. 01/25/2022 9:06 AM Head CTA 01/25/22 08:44 CTA ANGIOGRAPHY OF THE HEAD CLINICAL HISTORY: Stroke Like Symptoms. Dizziness. Vertigo. COMPARISON STUDY: No previous studies for comparison. TECHNIQUE: Helical axial images of the head were obtained following uneventful intravenous administration of 120 cc of Optiray. Sagittal and coronal reconstructions were viewed as well as maximal intensity projections on an independent 3-D workstation. Automated exposure control was utilized for the study. A dose lowering technique was utilized adhering to the principles of ALARA. FINDINGS: Please note that the head CT will be reported separately. Brain volume is normal. Ventricular system is normal. Basal cisterns are patent. 8 mm hypodensity within the anterior right thalamus is suggestive of an old infarct. The bilateral M1, M2, A1 and A2 segments are patent. There is moderate calcified plaque within the bilateral cavernous carotids without stenosis. Posterior circulation is intact. There is no central vessel occlusion. There is no intracranial aneurysm. No dissection is identified within the intracranial vessels. IMPRESSION: 1. No vessel occlusion. No intracranial aneurysm. 2. 8 mm hypodensity within the anterior right thalamus suggestive of an old infarct. ACT 112: Negative or not required by law. Electronically signed by: Hugo Medeiros M.D. 01/25/2022 9:15 AM Neck CTA 01/25/22 08:44 CT ANGIOGRAPHY OF THE NECK WITH CONTRAST CLINICAL HISTORY: Stroke Like Symptoms. Dizziness. Nausea. COMPARISON STUDY: No previous studies for comparison. Technique: CT angiography of the carotid and vertebral arteries was obtained using Optiray and 3D reconstruction on an independent workstation. NASCET criteria was utilized. Automated exposure control was utilized for the study. A dose lowering technique was utilized adhering to the principles of ALARA. CT DOSE: 1299.11 mGy.cm Findings: A segmental pulmonary embolus within the left upper lobe is partially imaged on this examination. No additional pulmonary emboli are identified within visualized portions of the upper chest. There is no cervical lymphadenopathy. No acute cervical spine fracture is noted. No suspicious lesions are identified within the visualized skeletal structures. The bilateral common carotid, cervical internal carotid and vertebral arteries are patent. There is no stenosis. There is mild plaque within the proximal bilateral internal carotid arteries. CTA of the head will be reported separately. Linear densities within the proximal bilateral cervical internal carotid arteries are probably artifactual. IMPRESSION: 1. Partially visualized segmental pulmonary embolus within the left upper lobe. A PE protocol chest CT could be obtained for further evaluation. 2. No stenosis within the bilateral common carotid, cervical internal carotid or vertebral arteries. Minimal plaque. ACT 112: Negative or not required by law. Electronically signed by: Hugo Medeiros M.D. 01/25/2022 9:12 AM Brain MRI 01/25/22 10:05 MRI OF THE BRAIN WITHOUT CONTRAST CLINICAL HISTORY: Stroke. Left-sided weakness. COMPARISON STUDY: Head CT and CTA of the head performed earlier today. TECHNIQUE: Utilizing a 1.5 Winnie magnet and dedicated coil, multiplanar, multiecho imaging of the brain was performed without IV contrast. FINDINGS: Note is made of a 3.3 x 1.8 cm focus of restricted diffusion within the right parietal lobe shown on axial diffusion-weighted sequence image 17 of 26. This is hypointense on the ADC map. No additional foci of restricted diffusion are noted. There is no significant mass effect. No associated cytotoxic edema is identified. There is 7 mm infarct within the right thalamus. Ventricular system is normal. Basal cisterns are patent. There are no extra-axial collections. No intracranial masses are identified on this unenhanced examination. Calvarial signal is within normal limits. Orbits are unremarkable. There is no evidence for sinusitis. Minimal ethmoid sinus mucosal thickening is present. IMPRESSION: 1. 3.3 x 1.8 cm acute infarct within the right parietal lobe. No mass effect. No acute hemorrhage. No cytotoxic edema. 2. Old 7 mm infarct within the right thalamus. ACT 112: Negative or not required by law. Electronically signed by: Hugo Medeiros M.D. 01/25/2022 11:29 AM Chest CTA 01/25/22 10:05 CT ANGIOGRAPHY OF THE CHEST, PULMONARY EMBOLUS PROTOCOL CLINICAL HISTORY: Pulmonary emboli. COMPARISON STUDY: Chest radiograph performed earlier today and May 04, 2019. TECHNIQUE: Following IV administration of 120 mL of Optiray, helical axial images of the chest were obtained utilizing the pulmonary embolus protocol. Maximal intensity projections and sagittal and coronal reformats were viewed on an independent 3D workstation. IV contrast was administered without complication. Automated exposure control was utilized for the study. A dose lowering technique was utilized adhering to the principles of ALARA. CT DOSE: 931.19 mGy.cm FINDINGS: There are multiple segmental and subsegmental pulmonary emboli within the lungs. These are acute appearing. The largest is within a segmental branch to the anterior segment of the left upper lobe. No central pulmonary embolus is present. No CT evidence for right heart strain. There is no pulmonary infarct. Size of the heart is normal. There is no pericardial effusion. No enlarged thoracic lymph nodes are present. A 5 mm subpleural left lower lobe nodule is similar to CT of December 09, 2013. This is benign given stability. A few small calcified granulomas are present. Central airways are patent. Hepatic steatosis is noted. A 1.2 cm cyst within the upper pole of the right kidney is incidentally noted. There is contrast within the renal collecting systems from recent contrast-enhanced CT. IMPRESSION: 1. Multiple segmental and subsegmental pulmonary emboli. 2. No pulmonary infarcts. 3. Hepatic steatosis. ACT 112: Negative or not required by law. Electronically signed by: Hugo Medeiros M.D. 01/25/2022 10:49 AM Medications Administered Medication List Discontinued Medications Aspirin (Aspirin Chew 324 Mg) 324 mg PO NOW STA Stop: 01/25/22 10:07 Last Admin: 01/25/22 10:11 Dose: 324 mg Documented by: [id number] Ioversol (Optiray 320 125ml) 120 ml IV ONCE ONE Stop: 01/25/22 09:04 Last Admin: 01/25/22 09:04 Dose: 120 ml Documented by: [id number] Ioversol (Optiray 320 125ml) 120 ml IV ONCE ONE Stop: 01/25/22 10:26 Last Admin: 01/25/22 10:26 Dose: 120 ml Documented by: [id number] Labetalol HCl (Labetalol Hcl Iv 5 Mg/Ml 20ml) Confirm Administered Dose 5 mg IV .STK-MED ONE Stop: 01/25/22 09:13 Last Admin: 01/25/22 09:14 Dose: Not Given Documented by: [id number] Labetalol HCl (Labetalol Hcl Iv 5 Mg/Ml 20ml) 10 mg IV NOW STA Stop: 01/25/22 09:13 Last Admin: 01/25/22 09:14 Dose: 10 mg Documented by: [id number] Cosigned by: [id number] Labetalol HCl (Labetalol Hcl Iv 5 Mg/Ml 20ml) 10 mg IV NOW STA Stop: 01/25/22 09:26 Last Admin: 01/25/22 09:33 Dose: 10 mg Documented by: [id number] Cosigned by: [id number] Labetalol HCl (Labetalol Hcl Iv 5 Mg/Ml 20ml) 10 mg IV NOW STA Stop: 01/25/22 10:06 Last Admin: 01/25/22 10:41 Dose: 10 mg Documented by: [id number] Cosigned by: [id number] Labetalol HCl (Labetalol Hcl Iv 5 Mg/Ml 20ml) 5 mg IV NOW STA Stop: 01/25/22 11:14 Last Admin: 01/25/22 11:25 Dose: 5 mg Documented by: [id number] Cosigned by: [id number] ECG Rate (beats per minute): 72 Rhythm: normal sinus COVID-19 Results Results COVID-19 Adm Lab Results: RBC 4.52 M/uL (4.7-6.1) L 01/25/22 WBC 7.68 K/uL (4.8-10.8) 01/25/22 Hgb 14.1 g/dL (14.0-18.0) 01/25/22 Hct 41.4 % (42-52) L 01/25/22 Plt Count 179 K/uL (130-400) 01/25/22 Neutrophils (%) (Auto) 52.2 % 01/25/22 Lymphocytes (%) (Auto) 30.2 % 01/25/22 Monocytes # (Auto) 1.14 K/uL (0.11-0.59) H 01/25/22 Eosinophils # (Auto) 0.14 K/uL (0-0.5) 01/25/22 Immature Granulocyte % (Auto) 0.7 % 01/25/22 Neutrophils # (Auto) 4.01 K/uL (1.4-6.5) 01/25/22 Lymphocytes # (Auto) 2.32 K/uL (1.2-3.4) 01/25/22 Monocytes # (Auto) 1.14 K/uL (0.11-0.59) H 01/25/22 Eosinophils # (Auto) 0.14 K/uL (0-0.5) 01/25/22 Basophils # (Auto) 0.02 K/uL (0-0.2) 01/25/22 Immature Granulocyte # (Auto) 0.05 K/uL (0.00-0.02) H 01/25/22 Na 135 mmol/L (136-145) L 01/25/22 K 3.9 mmol/L (3.5-5.1) 01/25/22 Cl 104 mmol/L (98-107) 01/25/22 CO2 26 mmol/L (21-32) 01/25/22 Anion Gap 5 (3-11) 01/25/22 BUN 17 mg/dl (6-23) 01/25/22 Creatinine 0.92 mg/dl (0.6-1.4) 01/25/22 BUN/Creatinine Ratio 18.5 (10-20) 01/25/22 Glucose Level 128 mg/dl (70-99(Fasting)) H 01/25/22 Ca 8.5 mg/dl (8.5-10.1) 01/25/22 Total Bilirubin 1.0 mg/dl (0.2-1.0) 01/25/22 AST/SGOT 21 U/L (13-39) 01/25/22 ALT/SGPT 27 U/L (7-52) 01/25/22 Alkaline Phosphatase 61 U/L (34-104) 01/25/22 Total Protein 6.5 gm/dl (6.0-8.3) 01/25/22 Albumin 3.9 gm/dl (3.4-5.0) 01/25/22 Globulin 2.6 gm/dl (2.5-4.0) 01/25/22 Albumin/Globulin Ratio 1.5 (0.9-2) 01/25/22 PTT 25.8 Seconds (21.0-31.0) 01/25/22 INR 1.0 (0.9-1.1) 01/25/22 SARS-CoV-2, RNA, NAAT NEGATIVE (NEGATIVE) 01/25/22 Chest X-Ray 01/25/22 Code Status & VTE Plan Code Status FULL CODE VTE Prophylaxis Plan VTE Prophylaxis will be ordered: No Supervising Physician Co-Signing Physician Notes Pt is a 51 y/o M with hx of HTN (not on medication), COVID infection (dx 3 weeks ago) admitted for CVA with PE. Exam: NAD, well developed Cards: Normal S1/S2, no murmur Lungs: CTA, no wheezing or crackles Abd: ND, NT, soft Neuro: CN II-XII intact, normal motor strength, PERRLA, EOMI, intact sensation MSK: L posterior calf TTP but no swelling or erythema Psych: AAOX3, normal affect A/P: Ischemic stroke: - pt had L side facial droop and slur speech with gen weakness: resolved - CT head: no acute finding but MRI brain showed 3.3 x 1.8 cm acute infarct within the right parietal lobe with old R thalamus infarct -CTA head and Neck: no stenosis - Normal neuro exam - pts BP is elevated: will start him on losartan 25mg daily with prn IV med - started the pt on heprin drip w/o bolus - also start the pt on Lipitor 80mg daily and aspirin 81mg daily - neuro consult - will get echo and admitted to tele PE: -likely provoked: pt had COVID infection 3 weeks ago -however due to presence of ischemic stroke and PE will get work up for coagulopathy, echo with bubble study -will also get A1C, Lipid panel -discuss the benefit and risk of heparin drip hayde with acute CVA with pt and family --- family is agreeable to heparin drip -L LE Doppler pending HTN: -will start the pt on Losartan 25mg daily Agree with A/P by Dora Serrato PA-C
--- NOTE | 2022-01-25 11:31 | Magnetic Resonance Report ---
MRI OF THE BRAIN WITHOUT CONTRAST CLINICAL HISTORY: Stroke. Left-sided weakness. COMPARISON STUDY: Head CT and CTA of the head performed earlier today. TECHNIQUE: Utilizing a 1.5 Winnie magnet and dedicated coil, multiplanar, multiecho imaging of the bra in was performed without IV contrast. FINDINGS: Note is made of a 3.3 x 1.8 cm focus of restricted diffusion within the right parietal lobe shown on axial diffusion-weighted sequence image 17 of 26. This is hypointense on the ADC map. No ad ditional foci of restricted diffusion are noted. There is no significant mass effect. No associated c ytotoxic edema is identified. There is 7 mm infarct within the right thalamus. Ventricular system is normal. Basal cisterns are patent. There are no extra-axial collections. No intracranial masses are i dentified on this unenhanced examination. Calvarial signal is within normal limits. Orbits are unrema rkable. There is no evidence for sinusitis. Minimal ethmoid sinus mucosal thickening is present. IMPRESSION: 1. 3.3 x 1.8 cm acute infarct within the right parietal lobe. No mass effect. No acute hemorrhage. No cytotoxic edema. 2. Old 7 mm infarct within the right thalamus. ACT 112: Negative or not required by law. Electronically signed by: Hugo Medeiros M.D. 01/25/2022 11:29 AM
[2022-01-25] MEDS ORDERED: Heparin IV Adult Wt-Based Standard WITH Bolus Protocol IV STA (11:53)
[2022-01-25] MEDS ORDERED: Heparin IV Adult Wt-Based Standard *NO* Bolus Protocol IV STA (12:05)
[2022-01-25] MEDS ORDERED: HEPARIN SOD (PORCINE) 1000 UNIT/ML IV ONE (12:09)
[2022-01-25] MEDS ORDERED: hydrALAZINE HCL 20 MG/ML VIAL IV ONE (12:11)
[2022-01-25] MEDS ORDERED: HEPARIN SODIUM/DEXTROSE 25,000 UNITS/500 ML BAG IV SCH (12:15)
[2022-01-25] MEDS ORDERED: ALUMINUM/MAGNESIUM SUSP 30 ML UDC PO PRN (12:48)
[2022-01-25] MEDS ORDERED: MAGNESIUM HYDROXIDE SUSP 30 ML UDC PO PRN (12:48)
[2022-01-25] MEDS ORDERED: LABETALOL HCL IV 5 MG/ML 20ML IV PRN (12:48)
[2022-01-25] MEDS ORDERED: PHARMACIST DISCHARGE MED REC CONSULT PRN (12:48)
[2022-01-25] MEDS ORDERED: ACETAMINOPHEN 325 MG TAB PO PRN (12:48)
[2022-01-25] MEDS ORDERED: ONDANSETRON INJ 2 MG/ML 2 ML VIAL IV PRN (12:48)
[2022-01-25] MEDS ORDERED: POLYETHYLENE (MIRALAX) 17 GM PACK PO PRN (12:48)
[2022-01-25] MEDS: Heparin IV Adult Wt-Based Standard *NO* Bolus Protocol IV SCH ×2 (13:38→13:39)
[2022-01-25] MEDS: PANTOprazole 40 MG TAB PO SCH (13:41)
[2022-01-25] MEDS: HEPARIN SODIUM/DEXTROSE 25,000 UNITS/500 ML BAG IV SCH (13:58)
--- NOTE | 2022-01-25 14:24 | Communication Note ---
Date of Service: January 25, 2022 Lan Negron is 51 years old is right-handed and neurology has been asked to evaluate him for what seems to have been a protracted but clinically reversible ischemic neurologic deficit involving the right parietal lobe which occurred this morning with manifested by left-sided weakness, denial of the deficits, confusion, but fortunately all symptoms resolved by the time he arrived in the emergency room about an hour and a half later and the stroke team was consulted did not feel he was a candidate for tPA. CT angiography of the neck is negative, of the brain reveals occlusion of a right sylvian branch of the middle cerebral artery, an echocardiogram has been done but is not interpreted, initial CAT scan was unremarkable but subsequent MRI scan reveals evidence for an old remote deep thalamic infarction and a superficial right parietal infarction which nicely explains his current clinical picture He does have a history of COVID 19 infection about 3 weeks ago with minimal symptoms He also has a history of trauma to the left calf and persistent left calf pain In addition to the cerebrovascular accident he has also been noted to have a cl inically silent pulmonary embolism An echocardiographic study is therefore being done to search for a right to left shunt specifically a PFO and he should have an ultrasonic study of the left leg looking for DVT In the interim he is going to be treated by dual antiplatelet therapy and is also going to have a hypercoagulability work-up suggested by the stroke neurology team at [facility] and this is underway Past medical history reveals longstanding but on treated hypertension He takes no medication on a regular basis He has no known drug allergy Family history social history are all as recorded on the chart Review of systems is positive for the recent COVID infection and the left calf pain Exam today reveals a blood pressure of 149/100 pulse 63 respirations 20 temperature is 36 7 and O2 saturation 98% on room air Is awake alert oriented 3 spheres and accurate historian denies any deficits at present and his is in the room confirms that he is back to his baseline. I see no head or eye deviation there is no visual field cut facial motility and strength facial sensation are all normal speech is clear. There is no drift pronation 7 tremor tics or choreiform activity and finger-nose [id number] testing is normal. Strength testing is normal. Reflexes are present and equal toes are down no Ceci signs are seen and gross sensation is intact without denial of bilaterally presented cutaneous sensory stimuli Patient has had an ischemic event involving the right parietal lobe which is clinically largely resolved and is also had silent pulmonary emboli occurring in the setting of a COVID-19 infection 3 weeks ago which could have induced a coagulopathy although the severity of symptoms were fairly mild and in the setting of acute left calf injury and possible underlying DVT which needs investigated Obviously a paradoxical embolism to the brain occurring simultaneously with the pulmonary emboli or sequentially with the pulmonary emboli as the leading diagnostic possibility in this setting Will wait to see what the echo shows he may need a transesophageal echo depending on what cardiology thinks and at this point all we are going to recommend his dual antiplatelet therapy for the traditional 3 weeks and agement of his risk factors such as hypertension dyslipidemia glucose intolerance etc. Obviously if we do find evidence for a PFO cardiology will have to come into play regarding recommendations for further anticoagulation and or possible PFO closure depending on the nature of the deficit Neurology will follow Dejon Covarrubias MD The above note was generated utilizing voice recognition technology and may have spelling errors punctuation errors pronoun usage errors and syntax errors
--- NOTE | 2022-01-25 15:08 | Ultrasound Report ---
LEFT LOWER EXTREMITY VENOUS DOPPLER CLINICAL HISTORY: pain, trauma, poss dvt COMPARISON STUDY: No previous studies for comparison. TECHNIQUE: Sonography of the deep venous system of the left lower extremity was performed. Compressi on and augmentation were evaluated. FINDINGS: The left common femoral, superficial femoral and popliteal veins were compressible. Augmen tation was normal. Flow was shown within the deep calf vessels. IMPRESSION: No evidence of deep venous thrombus within the left lower extremity. ACT 112: Negative or not required by law. Electronically signed by: Hugo Medeiros M.D. 01/25/2022 3:07 PM
--- NOTE | 2022-01-25 19:38 | Communication Note ---
Date of Service: January 25, 2022 Dr Keita was kind enough to point out errors on my initial consultation note Mr Negron was started appropriately on heparin not dual antiplatelet rx for his Pulmonary emboli awaotomn completion of the diagnostic workup with echo and leg ultrasound and eventually a full hypercoagulability workup so my recommendations for dual antiplatelet rx were erroneous He does not need additional antiplatelet rx at this time but potentially in the future once the rx for pulmonary emboli and possible dvt is complete single antiplatelet rx for secondary small vessel stroke prevention may be a consideration as he does have risk factors and one small vessel cva of silent type in the remote past Obviously this is a decision for the senior living and currently the issue is coumadiv vs noac for the PE and possilbe DVT and if we find a PFO then how to best manage that problem I thank Dr Goodwin for pointing out this oversight Dejon Covarrubias MD
[2022-01-25 20:39] LABS: Partial Thromboplastin Ratio 1.6; Partial Thromboplastin Time 43.1 Seconds (21.0-31.0)
[2022-01-26 03:37] LABS: Basophils # (auto) 0.02 K/uL (0-0.2); Basophils % (auto) 0.2 %; Eosinophils # (auto) 0.19 K/uL (0-0.5); Eosinophils % (auto) 2.1 %; Hematocrit (blood only) 42.8 % (42-52); Hemoglobin 14.7 g/dL (14.0-18.0); Immature Granulocytes # (auto) 0.06 K/uL (0.00-0.02); Immature Granulocytes % (auto) 0.7 %; Lymphocytes # (auto) 3.43 K/uL (1.2-3.4); Lymphocytes % (auto) 37.9 %; Mean Corpuscular Hemoglobin 31.5 pg (25-34); Mean Corpuscular Hgb Conc 34.3 g/dL (32-36); Mean Corpuscular Volume 91.8 fL (80-100); Mean Platelet Volume 10.2 fL (7.4-10.4); Monocytes # (auto) 1.14 K/uL (0.11-0.59); Monocytes % (auto) 12.6 %; Neutrophils # (auto) 4.21 K/uL (1.4-6.5); Neutrophils % (auto) 46.5 %; Platelet Count 180 K/uL (130-400); RDW Coefficient of Variation 13.8 % (11.5-14.5); RDW Standard Deviation 45.7 fL (36.4-46.3); Red Blood Count 4.66 M/uL (4.7-6.1); White Blood Count 9.05 K/uL (4.8-10.8)
[2022-01-26 04:02] LABS: Partial Thromboplastin Ratio 2.6
[2022-01-26 04:10] LABS: BUN Creatinine Ratio 16.1 (10-20); Calcium 8.7 mg/dl (8.5-10.1); Chol HDL Ratio 4.5 (0-5); Creatinine Clr Calc Pharmacy 129.4 ml/min; Est GFR (African American) 115.8 ml/min; Est GFR (Non-African American) 99.9 ml/min; Potassium 3.4 mmol/L (3.5-5.1)
[2022-01-26] MEDS: HEPARIN SODIUM/DEXTROSE 25,000 UNITS/500 ML BAG IV SCH ×2 (04:37→20:07)
[2022-01-26] MEDS: LOSARTAN POTASSIUM 25 MG TAB PO SCH (08:30)
[2022-01-26] MEDS: ATORVASTATIN 40 MG TAB PO SCH (08:30)
[2022-01-26] MEDS: ASPIRIN 81 MG ECTAB PO SCH (08:30)
[2022-01-26] MEDS: PANTOprazole 40 MG TAB PO SCH (08:30)
[2022-01-26] MEDS ORDERED: POTASSIUM CHLORIDE CRTAB 20 MEQ TABCR PO ONE (08:36)
--- NOTE | 2022-01-26 09:14 | Cardiology Consultation ---
Date of Consultation January 26, 2022 Assessment & Plan (1) TIA (transient ischemic attack): (2) Acute left-sided weakness: (3) Pulmonary emboli: (4) History of COVID-19: (5) HTN (hypertension): (6) Bilateral pulmonary embolism: Procedure along with risks, benefits and potential complications reviewed with patient and his both in agreement to proceed NPO after midnight timing of NICKY to be determined. History of Present Illness Reason for Consultation: PFO Requesting Physician: Dr. Sahu Attending Physician: Garry Sahu MD History of Present Illness 51 yo healthy male presents with temporary hemiplegia and B/L PE. Resting echo showed small PFO with low risk of paradoxical embolization. Cardiology asked to perform NICKY. Allergies Allergy/AdvReac Type Severity Reaction Status Date / Time No Known Allergies Allergy Unverified 01/25/22 10:06 Home Medications Medication Instructions Recorded Confirmed Type No Known Home Medications 01/25/22 01/25/22 History Patient History Medical History History of COVID-19 Perforated diverticulitis Surgical History H/O oral surgery H/O vasectomy History of colonoscopy History of inguinal hernia repair Family History Father Diabetes Hypertension Denies family history of Colon cancer Ovarian cancer Prostate cancer Clotting disorder Myocardial infarction Breast cancer Stroke Social History Smoking Status: Never smoker Hx Alcohol Use: No Hx Substance Use: No Preferred Language: Serbian Communication Ability: Effective Chief Program Officer Required: No Beliefs That Will Affect Care: None marital status: Current Living Situation: Spouse current occupational status: employed Other Information That Helps Us Care for You: No Feels Safe at Home: Yes Safety Concerns: Feels Safe At This Time Assistive Devices: None Review of Systems Review of Systems: All systems reviewed & are unremarkable except as noted in HPI & below Physical Exam Physical Exam: Physical Exam: General: Awake, alert and oriented x 3. No acute distress. HEENT: Normocephalic, atraumatic. Pupils equal, round and reactive to light and accommodation. Extraocular muscles are intact. Anicteric sclera. Moist mucous membranes. Neck: No JVD. No bruit. Cardiovascular: Regular. No S-4. Normal S-1 and S-2. No S-3. No murmurs, rubs or gallops. Pulmonary: Clear to auscultation bilaterally. No rales, rhonchi, or wheezing. Abdomen: Bowel sounds x 4, soft. No rebound, guarding or tenderness. No organomegaly. Extremities: No clubbing, cyanosis or edema. +2 pedal pulses bilaterally. Skin: Warm and dry. Results & Data ([facility]) Vital Signs (Past 12 Hours) Vital Signs Temp Pulse Pulse Resp BP Pulse Ox 01/26/22 08:06 76 01/26/22 07:26 36.6 C 76 16 141/90 H 96 01/26/22 03:31 36.6 C 54 L 18 131/86 98 01/26/22 00:35 36.9 C 59 L 17 129/81 96 01/25/22 22:53 70 (1) Pulmonary emboli Pulmonary embolism type: multiple subsegmental (without acute cor pulmonale) Qualified Code(s): I26.94 - Multiple subsegmental pulmonary emboli without acute cor pulmonale
--- NOTE | 2022-01-26 10:07 | CT Scan Report ---
CT head/brain wo con CLINICAL HISTORY: follow up on acute CVA COMPARISON STUDY: CT and MRI of the brain from 01/25/2022 CT DOSE: 691.05 mGy.cm TECHNIQUE: Standard CT of the Brain was performed without IV contrast. A dose lowering technique was utilized adhering to the principles of ALARA. FINDINGS: Extraaxial space: There is no evidence for subdural hematoma. There are no extra-axial fluid collecti ons. Ventricles and cisterns: The ventricles are normal in size and configuration. There is no evidence fo r midline shift or mass effect. Parenchyma: There is no subarachnoid or intraparenchymal hemorrhage. There is an evolving ischemic in farct present within the right parietal lobe posteriorly as best seen on images 21 through 25. Old ri ght thalamic infarct is again seen. There is homogeneous attenuation of the brain parenchyma. There a re no gross mass lesions. Osseous structures: There is no evidence for an acute fracture. The visualized paranasal sinuses are clear. The mastoid air cells are clear bilaterally. Soft tissues: There is no evidence for focal soft tissue swelling. IMPRESSION: 1. Evolving ischemic infarct within the right posterior parietal lobe characteristic of right MCA inf arct. This corresponds to the abnormality seen on MRI. ACT 112: Negative or not required by law. Electronically signed by: Toni Ac M.D. 01/26/2022 10:05 AM
--- NOTE | 2022-01-26 10:29 | Electrocardiogram Report ---
Test Reason : Blood Pressure : / mmHG Vent. Rate : 060 BPM Atrial Rate : 060 BPM P-R Int : 152 ms QRS Dur : 100 ms QT Int : 456 ms P-R-T Axes : 049 -11 009 degrees QTc Int : 456 ms Normal sinus rhythm Voltage criteria for left ventricular hypertrophy Abnormal ECG When compared with ECG of 25-JAN-2022 09:04, No significant change was found Confirmed by Da Spear ([id number]) on 01/26/2022 10:29:03 AM Referred By: REFERRED SELF Confirmed By:Da Spear
[2022-01-26 11:13] LABS: Partial Thromboplastin Ratio 2.1
[2022-01-26 11:17] LABS: Partial Thromboplastin Time 58.6 Seconds (21.0-31.0)
--- NOTE | 2022-01-26 11:43 | Communication Note ---
Date of Service: January 26, 2022 I saw Lan today. His is at the bedside. He is already been seen by cardiology. The echocardiogram shows a PFO but it is not felt to be a likely source of emboli Apparently a transesophageal echo is being scheduled for tomorrow which may define the defect a little more clearly Decisions regarding long-term anticoagulation depending Clinically he looks well there is no motor deficits no sensory deficits but his noted last night and he was unable to participate in the game that require some visual spatial skills and at which she was pretty fast silent in the past so he right parietal lesion may have some cognitive issues that are hard to detect at the bedside and may need more clear definition later The hypercoagulability profile is pending and this may contribute to the decision regarding long-term anticoagulation with a novel anticoagulant versus a vitamin K anticoagulant At this point neurology has no further suggestions. I am going arrange to have him seen in our office in about a month and I would suggest that he take another 10 days off work. 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 If so we may need to have our neuropsychology team put him through some testing try to define the deficits and later groundwork for perhaps short-term disability issue Dejon Covarrubias MD The above note was generated utilizing voice recognition technology and may have spelling errors punctuation errors pronoun usage errors and syntax errors
--- NOTE | 2022-01-26 14:15 | Hospitalist Progress Note ---
Date of Service January 26, 2022 Assessment & Plan (1) Acute CVA (cerebrovascular accident): (2) Bilateral pulmonary embolism: (3) History of COVID-19: (4) HTN (hypertension): Plan: Patient is a 51 yr male with H/O no Significant PMH Presented to ED due to acute onset of strokelike symptoms with generalized weakness, slurred speech and left facial droop. Acute CVA of Right Parietal Lobe Old Right Thalamic CVA --MRI Brain:3.3 x 1.8 cm acute infarct within the right parietal lobe. No mass effect. No acute hemorrhage. No cytotoxic edema. Old 7 mm infarct within the right thalamus. --Head CTA:8 mm hypodensity within the anterior right thalamus suggestive of an old infarct. occlusion of a distal sylvian branch of the right middle cerebral artery shown on axial image 149 of 272. --Neck CTA:Partially visualized segmental pulmonary embolus within the left upper lobe. A PE protocol chest CT could be obtained for further evaluation. No stenosis within the bilateral common carotid, cervical internal carotid or vertebral arteries. Minimal plaque --Venous Doppler:No evidence of deep venous thrombus within the left lower extremity. --ECHO: Patent foramen ovale is present and there is no risk for embolism. Grade 1 diastolic dysfunction. EF 55 to 60%. Mild concentric LVH. --LDL: 118 --HbA1C: pending Work-up for hypercoagulability pending --Continue Aspirin, Lipitor Also on IV Heparin Repeat CT head showed no hemorrhage Appreciate Neurology Input Continue PT OT Speech therapy evaluation Needs follow-up with neurology upon discharge Consulted cardiology for PFO Hypertension Started on losartan Acute B/L PE Hx of COVID-19 - approx 3 wks ago --CTA:Multiple segmental and subsegmental pulmonary emboli. No pulmonary infarcts. Continue IV heparin Plan to transition to p.o. anticoagulation tomorrow if able Saturating well on room DVT Px: on IV Heparin Code Status FULL CODE Admission and Anticipated Discharge Date Admission Date: January 25, 2022 Subjective Patient is seen and examined at bedside Left upper extremity weakness, facial droop, slurred speech resolved Denies any chest pain, shortness of breath, dizziness, nausea, abdominal pain Currently no bleeding issues while on IV heparin Reports having minimal cough, associated headache Review of Systems Review of Systems: All systems reviewed & are unremarkable except as noted in Subjective Physical Exam Physical Exam: Physical Exam: Vitals signs as noted above General Appearance:Moderately built and nourished, no apparent distress Head: normocephalic, Atraumatic Eyes: normal inspection, EOMI Neck: supple, Trachea midline Respiratory/Chest: Normal breath sounds, CTA, No accessory muscle use Cardiovascular: S1, S2, No murmur Abdomen/GI:Soft, Non tender, Bowel sounds present Extremities/Musculoskeletal:normal inspection, no edema Neurologic/Psych:AAOX3, grossly no focal neurological deficits Skin: normal color, warm Results & Data Results & Data ([facility]) Vital Signs (Past 12 Hours) Vital Signs Temp Pulse Pulse Resp BP Pulse Ox Pulse Ox 01/26/22 13:00 98 01/26/22 12:41 36.5 C 72 18 135/90 95 01/26/22 08:06 76 01/26/22 07:26 36.6 C 76 16 141/90 H 96 01/26/22 03:31 36.6 C 54 L 18 131/86 98 Laboratory Results Short CBC 01/26/22 Range/Units 03:20 WBC 9.05 (4.8-10.8) K/uL Hgb 14.7 (14.0-18.0) g/dL Hct 42.8 (42-52) % Plt Count 180 (130-400) K/uL BMP 01/26/22 03:20 Sodium 137 Potassium 3.4 L Chloride 105 Carbon Dioxide 25 BUN 14 Creatinine 0.87 Glucose 120 H Calcium 8.7
[2022-01-27 06:17] LABS: Basophils # (auto) 0.03 K/uL (0-0.2); Basophils % (auto) 0.3 %; Eosinophils # (auto) 0.22 K/uL (0-0.5); Eosinophils % (auto) 2.5 %; Hematocrit (blood only) 44.2 % (42-52); Hemoglobin 14.8 g/dL (14.0-18.0); Immature Granulocytes # (auto) 0.06 K/uL (0.00-0.02); Immature Granulocytes % (auto) 0.7 %; Lymphocytes # (auto) 3.09 K/uL (1.2-3.4); Lymphocytes % (auto) 34.8 %; Mean Corpuscular Hemoglobin 30.7 pg (25-34); Mean Corpuscular Hgb Conc 33.5 g/dL (32-36); Mean Corpuscular Volume 91.7 fL (80-100); Mean Platelet Volume 10.2 fL (7.4-10.4); Monocytes # (auto) 1.25 K/uL (0.11-0.59); Monocytes % (auto) 14.1 %; Neutrophils # (auto) 4.24 K/uL (1.4-6.5); Neutrophils % (auto) 47.6 %; Platelet Count 188 K/uL (130-400); RDW Standard Deviation 46.9 fL (36.4-46.3); Red Blood Count 4.82 M/uL (4.7-6.1); White Blood Count 8.89 K/uL (4.8-10.8)
[2022-01-27 06:43] LABS: BUN Creatinine Ratio 11.7 (10-20); Calcium 8.9 mg/dl (8.5-10.1); Creatinine Clr Calc Pharmacy 109.5 ml/min; Est GFR (Non-African American) 83.7 ml/min; Potassium 4.4 mmol/L (3.5-5.1)
[2022-01-27 06:44] LABS: Partial Thromboplastin Ratio 2.7
[2022-01-27 06:54] LABS: Partial Thromboplastin Time 74.9 Seconds (21.0-31.0)
[2022-01-27] MEDS: PANTOprazole 40 MG TAB PO SCH (08:02)
[2022-01-27] MEDS: ATORVASTATIN 40 MG TAB PO SCH (08:02)
[2022-01-27] MEDS: ASPIRIN 81 MG ECTAB PO SCH (08:02)
[2022-01-27] MEDS: LOSARTAN POTASSIUM 25 MG TAB PO SCH (08:02)
[2022-01-27] MEDS ORDERED: LOSARTAN POTASSIUM 25 MG TAB PO ONE (08:58)
[2022-01-27] MEDS ORDERED: LOSARTAN POTASSIUM 50 MG TAB PO SCH (09:00)
[2022-01-27 09:52] LABS: Estimated Average Glucose 148 mg/dl; Hemoglobin A1C 6.8 % (4.5-5.6)
[2022-01-27] MEDS ORDERED: MIDAZOLAM HCL 5 MG/ML 1 ML VIAL ONE (10:35)
[2022-01-27] MEDS ORDERED: fentaNYL citrate 100 MCG/2 ML VIAL ONE (10:36)
[2022-01-27] MEDS ORDERED: BENZOCAINE/TETRACAIN/BUTAM 50 APPLN/5 GM CAN EXT ONE (10:36)
--- NOTE | 2022-01-27 11:05 | Pre Anesthesia Assessment ---
Date of Service January 27, 2022 Pre Sedation Assessment Vital Signs Temp Pulse Pulse Resp BP Pulse Ox Pulse Ox 01/27/22 10:44 69 16 154/89 H 98 01/27/22 08:50 70 01/27/22 07:20 37.0 C 67 18 152/97 H 98 01/27/22 05:35 36.7 C 67 18 149/97 H 98 01/27/22 03:53 78 01/27/22 00:10 36.7 C 71 20 148/89 H 96 01/26/22 19:14 37.5 C 84 18 155/92 H 95 01/26/22 16:00 77 01/26/22 13:00 98 01/26/22 12:41 36.5 C 72 18 135/90 95 Pre-Sedation Airway Assessment Smoking Status: Never smoker Short, Thick Neck: No Thyromental Distance: > or= 3.5 Finger Breadths Oral Cavity: + WNL Mallampati Class: III ASA: ASA3 NPO Status Date of Last Intake of Fluids: 01/26/22 Time of Last Intake of Fluids: 20:00 Date of Last Intake of Solid Food: 01/26/22 Time of Last Intake of Solid Foods: 20:00 Notes The planned sedation has been discussed with the patient. Informed Consent was obtained. I have identified the patient, determined the appropriateness of sedation and have assessed the patient immediately prior to the procedure. All medicine(s) and interventions are by my order.
--- NOTE | 2022-01-27 11:36 | Post Anesthesia Assessment ---
Date of Service January 27, 2022 Post Sedation Assessment Vital Signs Temp Pulse Pulse Resp BP BP Pulse Ox 01/27/22 11:25 70 14 132/78 99 01/27/22 11:20 72 16 114/87 98 01/27/22 11:15 68 16 140/100 98 01/27/22 10:44 69 16 154/89 H 98 01/27/22 08:50 70 01/27/22 07:20 37.0 C 67 18 152/97 H 98 01/27/22 05:35 36.7 C 67 18 149/97 H 98 01/27/22 03:53 78 01/27/22 00:10 36.7 C 71 20 148/89 H 96 01/26/22 19:14 37.5 C 84 18 155/92 H 95 01/26/22 16:00 77 01/26/22 13:00 01/26/22 12:41 36.5 C 72 18 135/90 95 Pulse Ox 01/27/22 11:25 01/27/22 11:20 01/27/22 11:15 01/27/22 10:44 01/27/22 08:50 01/27/22 07:20 01/27/22 05:35 01/27/22 03:53 01/27/22 00:10 01/26/22 19:14 01/26/22 16:00 01/26/22 13:00 98 01/26/22 12:41 Discharge Sedation Level of Care: Fast Track Phase II Post Sedation Plan On clinical assessment, the patient appears to have tolerated the sedation without complications. Patient is recovering as anticipated. Patient will continue to be monitored by nursing and may be discharged when sedation discharge criteria are met per below protocol. Upon Completions of procedure up to 15 minutes continue every 5 minute vital signs and the P.A.R. score; then discharge to a Phase I or Fast Track to Phase II per the following guidelines: * Discharge Patient to appropriate Phase II area if PAR is 8 or greater or return to pre- procedure baseline. The post - procedure orders will be as directed. * If PAR score is less than 8 or not return to pre-procedure baseline then patient will follow Phase I monitoring till PAR is reached for Phase II. The Phase I may be done in procedure room or may call to secure a Phase I area. * If naloxone or flumazenil are used for reversal, hold in Phase I for continued monitoring from when last reversal dose was given for a minimum of 60 minutes or longer pending the nurse and/or physician discretion of patient condition before discharge to Phase II. Please call the Sedation Physician to re-evaluate and complete post-note for discharge to Phase II area. Do NOT discharge from procedure sedation or Phase 1 until post- sedation evaluation note is complete by procedure /sedation MD Sedation Discharge Instructions to be given to the patient at discharge to home.
--- NOTE | 2022-01-27 11:39 | Post Operative Brief Note ---
Cardiology Brief Post Op Date of Surgery January 27, 2022 Pre & Post Diagnosis Operation Date: 01/27/22 10:30 <No data on this case meets the specified criteria> Procedure NICKY Informed consent obtained. Patient prepped. Adequate moderate sedation achieved with a total of 4 mg of Versed and 75 mcg of fentanyl. Patient tolerated procedure well. Significant right to left shunt demonstrated. Recover per protocol. Start time: 1120 Stop time 1130 Plan: Return to telemetry and continue dual antiplatelet therapy Will need outpatient referral for possible PFO closure as an outpatient Dye Weigher Helper Ricardo Zhou DO Degreaser Maria De Jesus Estimated Blood Loss 0 Findings Consistent with Post-Op Diagnosis
--- NOTE | 2022-01-27 11:44 | Cardiology Progress Note ---
Date of Service January 27, 2022 Assessment & Plan (1) Acute left-sided weakness: (2) Pulmonary emboli: (3) History of COVID-19: (4) HTN (hypertension): (5) Bilateral pulmonary embolism: (6) Acute CVA (cerebrovascular accident): Plan: NICKY performed did demonstrate significant right to left shunting at rest Continue dual antiplatelet therapy. Patient will ultimately need referral for possible PFO closure as an outpatient. No further cardiac testing intervention necessary this admission. Okay to DC to home from a cardiac standpoint. Admission and Anticipated Discharge Date Admission Date: January 25, 2022 Subjective Patient seen and examined, chart reviewed. No events overnight. No cardiac complaints. Telemetry reviewed: Normal sinus rhythm Review of Systems Review of Systems: All systems reviewed & are unremarkable except as noted in HPI & below Physical Exam Physical Exam: Physical Exam: General: Awake, alert and oriented x 3. No acute distress. HEENT: Normocephalic, atraumatic. Pupils equal, round and reactive to light and accommodation. Extraocular muscles are intact. Anicteric sclera. Moist mucous membranes. Neck: No JVD. No bruit. Cardiovascular: Regular. No S-4. Normal S-1 and S-2. No S-3. No murmurs, rubs or gallops. Pulmonary: Clear to auscultation bilaterally. No rales, rhonchi, or wheezing. Abdomen: Bowel sounds x 4, soft. No rebound, guarding or tenderness. No organomegaly. Extremities: No clubbing, cyanosis or edema. +2 pedal pulses bilaterally. Skin: Warm and dry. ENMT: Mallampati Class: III Results & Data ([facility]) Vital Signs (Past 12 Hours) Vital Signs Temp Pulse Pulse Resp BP BP Pulse Ox 01/27/22 11:36 74 16 129/93 98 01/27/22 11:25 70 14 132/78 99 01/27/22 11:20 72 16 114/87 98 01/27/22 11:15 68 16 140/100 98 01/27/22 10:44 69 16 154/89 H 98 01/27/22 08:50 70 01/27/22 07:20 37.0 C 67 18 152/97 H 98 01/27/22 05:35 36.7 C 67 18 149/97 H 98 01/27/22 03:53 78 01/27/22 00:10 36.7 C 71 20 148/89 H 96 (1) Pulmonary emboli Pulmonary embolism type: multiple subsegmental (without acute cor pulmonale) Qualified Code(s): I26.94 - Multiple subsegmental pulmonary emboli without acute cor pulmonale
[2022-01-27] MEDS: HEPARIN SODIUM/DEXTROSE 25,000 UNITS/500 ML BAG IV SCH ×2 (12:53→12:54)
[2022-01-27] MEDS ORDERED: APIXABAN 5 MG TABLET PO SCH (13:00)
[2022-01-27 13:53] LABS: Partial Thromboplastin Ratio 1.9
[2022-01-27 14:09] LABS: Partial Thromboplastin Time 51.7 Seconds (21.0-31.0)
--- NOTE | 2022-01-27 14:12 | Hospitalist Progress Note ---
Date of Service January 27, 2022 Assessment & Plan (1) Acute CVA (cerebrovascular accident): (2) Bilateral pulmonary embolism: (3) History of COVID-19: (4) HTN (hypertension): Plan: Patient is a 51 yr male with H/O no Significant PMH Presented to ED due to acute onset of strokelike symptoms with generalized weakness, slurred speech and left facial droop. Acute CVA of Right Parietal Lobe Old Right Thalamic CVA --MRI Brain:3.3 x 1.8 cm acute infarct within the right parietal lobe. No mass effect. No acute hemorrhage. No cytotoxic edema. Old 7 mm infarct within the right thalamus. --Head CTA:8 mm hypodensity within the anterior right thalamus suggestive of an old infarct. occlusion of a distal sylvian branch of the right middle cerebral artery shown on axial image 149 of 272. --Neck CTA:Partially visualized segmental pulmonary embolus within the left upper lobe. A PE protocol chest CT could be obtained for further evaluation. No stenosis within the bilateral common carotid, cervical internal carotid or vertebral arteries. Minimal plaque --Venous Doppler:No evidence of deep venous thrombus within the left lower extremity. --ECHO: Patent foramen ovale is present and there is no risk for embolism. Grade 1 diastolic dysfunction. EF 55 to 60%. Mild concentric LVH. --LDL: 118 Work-up for hypercoagulability pending --Continue Aspirin, Lipitor Also on IV Heparin Repeat CT head showed no hemorrhage Appreciate Neurology Input Continue PT OT:Recommends return Home Speech therapy evaluation Needs follow-up with neurology upon discharge Appreciate Cardiology Input NICKY showed significant right to left shunting at rest Patient will likely need PFO closure by CT surgeon as outpatient Discussed with Neurology on 01/27/22: Ok to discharge on Aspirin, Eliquis, Lipitor Needs follow-up with neurology and CT surgery as outpatient DM II New Diagnosis HbA1C: 6.8 Patient prefers to discuss with PCP prior to being initiated on any medications Wants to try with diet controlled. Hypertension Continue losartan Acute B/L PE Hx of COVID-19 - approx 3 wks ago --CTA:Multiple segmental and subsegmental pulmonary emboli. No pulmonary infarcts. Continue IV heparin>> transition to Eliquis based on patient's preference. Hypercoagulable work-up pending. Saturating well on room DVT Px: Eliquis Code Status FULL CODE Disposition Home Admission and Anticipated Discharge Date Admission Date: January 25, 2022 Subjective Patient is seen and examined at bedside Had NICKY earlier today Discussed with neurology today Patient states feeling well today No bleeding issues while on IV heparin Denies any recurrence of weakness, slurred speech, facial droop Also denies any chest pain, dyspnea, dizziness, nausea, abdominal pain Review of Systems Review of Systems: All systems reviewed & are unremarkable except as noted in Subjective Physical Exam Physical Exam: Physical Exam: Vitals signs as noted above General Appearance:Moderately built and nourished, no apparent distress Head: normocephalic, Atraumatic Eyes: normal inspection, EOMI Neck: supple, Trachea midline Respiratory/Chest: Normal breath sounds, CTA, No accessory muscle use Cardiovascular: S1, S2, No murmur Abdomen/GI:Soft, Non tender, Bowel sounds present Extremities/Musculoskeletal:normal inspection, no edema Neurologic/Psych:AAOX3, grossly no focal neurological deficits Skin: normal color, warm Results & Data Results & Data ([facility]) Vital Signs (Past 12 Hours) Vital Signs Temp Pulse Pulse Resp BP BP Pulse Ox 01/27/22 12:23 36.6 C 73 18 138/94 97 01/27/22 11:45 74 16 122/83 98 01/27/22 11:30 74 16 129/93 98 01/27/22 11:25 70 14 132/78 99 01/27/22 11:20 72 16 114/87 98 01/27/22 11:15 68 16 140/100 98 01/27/22 10:44 69 16 154/89 H 98 01/27/22 08:50 70 01/27/22 07:20 37.0 C 67 18 152/97 H 98 01/27/22 05:35 36.7 C 67 18 149/97 H 98 01/27/22 03:53 78 Laboratory Results Short CBC 01/27/22 Range/Units 05:54 WBC 8.89 (4.8-10.8) K/uL Hgb 14.8 (14.0-18.0) g/dL Hct 44.2 (42-52) % Plt Count 188 (130-400) K/uL BMP 01/27/22 05:54 Sodium 139 Potassium 4.4 D Chloride 106 Carbon Dioxide 28 BUN 12 Creatinine 1.03 Glucose 122 H Calcium 8.9
[2022-01-27] MEDS ORDERED: STROKE PATIENT DISCHARGE STA (14:34)
--- NOTE | 2022-01-27 14:35 | Discharge Summary ---
Date of Service January 27, 2022 Admission HPI Per Admitting Provider This is a 51 yr old M who has no known PMH who presents to ED 2/2 to stroke like sx. at 0645 he was sitting drinking coffee when he developed acute onset generalized weakness, "felt like no energy," slurred speech and left facial droop. They called EMS and brought to ED. When he arrived to the ED his sx started to resolve. 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 He recently had covid-19 approx 2- 3 weeks ago. His sx resolved with conservative treatment and nyquil. His also was ill. She is present at bedside. Their home test was positive. He denies any recent tick bites. He denies f/c/s, dizziness, lightheaded, change in v ision/hearing, chest pain, sob, cough, uri sx, n/v/d, abd pain, change in bowel or urinary habits. He denies any recent travel. He did recently drop and object on his L leg approx 1 week ago. Since then he has been having soreness to his calf and hamstring. He denies redness or swelling. He denies prior hx of HTN, but states he did give blood a few times and it was high then. Admission Exam Per Admitting Provider Exam: NAD, well developed Cards: Normal S1/S2, no murmur Lungs: CTA, no wheezing or crackles Abd: ND, NT, soft Neuro: CN II-XII intact, normal motor strength, PERRLA, EOMI, intact sensation MSK: L posterior calf TTP but no swelling or erythema Psych: AAOX3, normal affect Principal Diagnosis Acute Right Parietal Lobe Stroke Diabetes Mellitus Hypertension Acute bilateral Pulmonary Embolism Discharge Data Allergies Allergy/AdvReac Type Severity Reaction Status Date / Time No Known Allergies Allergy Unverified 01/25/22 10:06 Consultations 01/25/22 10:49 ED Decision to Admit Stat 01/25/22 11:04 Consult Neurology Routine 01/25/22 20:54 Consult Cardiology Routine Procedures Performed Operation Date: 01/27/22 10:30 Actual Procedures p Echo Transesophageal - Ricardo Zhou, DO Ordered Studies 01/25/22 08:44 CT angio head w con Stat CT angio neck with con Stat CT head/brain wo con Stat 01/25/22 10:05 CT angio chest PE protocol Stat MR brain wo con Stat 01/25/22 10:06 US venous doppler LE LT Stat 01/26/22 09:00 CT head/brain wo con Routine Hospital Course (1) Acute CVA (cerebrovascular accident): (2) Bilateral pulmonary embolism: (3) History of COVID-19: (4) HTN (hypertension): Patient is a 51 yr male with H/O no Significant PMH Presented to ED due to acute onset of strokelike symptoms with generalized weakness, slurred speech and left facial droop. Acute CVA of Right Parietal Lobe Old Right Thalamic CVA --MRI Brain:3.3 x 1.8 cm acute infarct within the right parietal lobe. No mass effect. No acute hemorrhage. No cytotoxic edema. Old 7 mm infarct within the right thalamus. --Head CTA:8 mm hypodensity within the anterior right thalamus suggestive of an old infarct. occlusion of a distal sylvian branch of the right middle cerebral artery shown on axial image 149 of 272. --Neck CTA:Partially visualized segmental pulmonary embolus within the left upper lobe. A PE protocol chest CT could be obtained for further evaluation. No stenosis within the bilateral common carotid, cervical internal carotid or vertebral arteries. Minimal plaque --Venous Doppler:No evidence of deep venous thrombus within the left lower extremity. --ECHO: Patent foramen ovale is present and there is no risk for embolism. Grade 1 diastolic dysfunction. EF 55 to 60%. Mild concentric LVH. --LDL: 118 Work-up for hypercoagulability pending --Continue Aspirin, Lipitor Also on IV Heparin Repeat CT head showed no hemorrhage Appreciate Neurology Input Continue PT OT:Recommends return Home Speech therapy evaluation Needs follow-up with neurology upon discharge Appreciate Cardiology Input NICKY showed significant right to left shunting at rest Patient will likely need PFO closure by CT surgeon as outpatient Discussed with Neurology on 01/27/22: Ok to discharge on Aspirin, Eliquis, Lipitor Needs follow-up with neurology and CT surgery as outpatient DM II New Diagnosis HbA1C: 6.8 Patient prefers to discuss with PCP prior to being initiated on any medications Wants to try with diet controlled. Hypertension Continue losartan Acute B/L PE Hx of COVID-19 - approx 3 wks ago --CTA:Multiple segmental and subsegmental pulmonary emboli. No pulmonary infarcts. Continue IV heparin>> transition to Eliquis based on patient's preference. Hypercoagulable work-up pending. Saturating well on room DVT Px: Eliquis Code Status FULL CODE Disposition Home Total Time Total Time Spent Total Time Spent (In Minutes): 48 minutes Discharge Plan Discharge Items Patient Disposition: Home - Self-Care Reason For Visit: CONTRAINDICATED Discharge Diagnosis: Acute Right Parietal Lobe Stroke Diabetes Mellitus Hypertension Acute bilateral Pulmonary Embolism Condition on Discharge: Serious Activity: Per Instructions section Exercise/Sports: Wait until after follow-up appointment Driving/Machine Use: Avoid driving if able until follow up with your PCP Non-emergency contact: Primary Care Provider, Surgeon and Neurologist Call non-emergency contact if: you have any medication questions, your symptoms worsen, your pain is concerning for you and you have a fever Follow-up/Referrals: Paula Pastrana PA-C [Physician Envelope Sealing Machine Operator] - (Date & Time 02/27[facility]2022 11[facility] [place] [facility] Karlo Duke DO [Primary Care Provider] - (Date & Time 02/04/2022 11:00 John Duke [facility] ) Diet: Carb Consistent or DM2 and Heart Healthy Addtl Attending Provider Instructions: Follow-up with your primary care physician Dr. Karlo Duke on 02/04/2022 11:00 AM as scheduled Follow-up with your neurologist Paula Pastrana PA-C on 02/27/2022 11:20 AM as scheduled Follow-up with CT surgery for evaluation of patent foramen Ovale: You may need surgery to decrease the risk for strokes --- Discussed with your physician for further management of diabetes mellitus as advised. --- Your blood work (hypercoagulable work-up) is is pending at the time of discharge. Follow-up with your physician for results. Eliquis(Apixaban) dosage Instructions: Start taking apixaban 10 mg twice a day for 1 week, then take 5 mg twice a day. Duration of anticoagulation to be determined by your primary care physician. Seek immediate medical attention if your symptoms reoccur or worsen Please take all medications as instructed on discharge list below. Please call if you have any questions or problems. You can reach a [facility] hospitalist on duty at [facility] 24 hours a day by calling [phone] Risk Factors for Stroke: You can reduce your chances of stroke by working with your medical provider to a dopt a healthy lifestyle. Some specific ways to lower your chance of stroke are: * If you are a smoker, now is the time to stop smoking cigarettes * If you are diabetic, improve the control of your blood sugars * Avoid excessive amounts of alcohol * Control high blood pressure * Lose weight if you are overweight * Be sure to lead an active lifestyle * Eat a healthy diet low in salt, cholesterol and fat You should know about other risk factors for stroke that you are unable to control. These include: * Age 55 years or older * Male gender * Certain racial groups: , or / * Family History of Stroke, Mini stroke or Heart Attack * Sickle Cell Disease Follow Up: It is important for you to keep your follow up appointments with your medical provider. Who to Call and When: Medical Emergencies: Call 911 immediately if you experience any of the following warning signs and symptoms of Stroke: * Sudden numbness or weakness of the face, arm or leg, especially on one side of the body * Sudden confusion, trouble speaking or understanding * Sudden trouble seeing in one or both eyes * Sudden trouble walking, dizziness, loss of balance or coordination * Sudden severe headache with no cause Do not delay calling 911 if you experience any warning signs or symptoms of a stroke. Delay in seeking medical attention may affect what treatments can be given to you. . Pending Studies at Discharge: Yes Studies:: Hypercoagulable work up Stand-Alone Forms: Medications to Prevent Stroke, My [facility], Work/School Release, Smoking Cessation Medications and DC Order Prescriptions: New Eliquis 5 mg Tablet 10 mg PO UD Qty: 74 RF: 1 atorvastatin 40 mg Tablet 80 mg PO QAM Qty: 60 RF: 1 losartan 50 mg Tablet 50 mg PO QAM Qty: 30 RF: 1 aspirin 81 mg Tablet,Delayed Release (Dr/Ec) 81 mg PO QAM Qty: 30 RF: 1 Discharge Orders: Discharge Order (Routine); Ordered 01/27/22 Ordered By: Garry Zelaya/Other Patient Handouts: A1C, 5 Steps for Eating Healthier, Exercise: Why Fitness Matters Admission Data Admit Date/Time: 01/25/22 11:04 Attending Provider: Garry Sahu Admit Provider: Brant Goodwin Primary Care Provider: Karlo Duke Other Providers: Brant Goodwin ; Dejon Covarrubias ; Ricardo Zhou
--- NOTE | 2022-01-27 15:20 | Pharmacy Report ---
Pharmacist Stroke Counseling - Date of Service January 27, 2022 - Scope: Pharmacy has been consulted to provide medication discharge counseling for this patient admitted with ischemic stroke as per the Pharmacist Discharge Counseling for Stroke Patients Protocol. - Medications on Discharge: New Rx's Medication Instructions Recorded apixaban 5 mg tablet (Eliquis) 10 mg PO UD #74 tab 01/27/22 aspirin 81 mg tablet,delayed 81 mg PO QAM #30 tab 01/27/22 release atorvastatin 40 mg tablet 80 mg PO QAM #60 tab 01/27/22 losartan 50 mg tablet 50 mg PO QAM #30 tab 01/27/22 - Action: The above medications, specifically ones for stroke treatment/prophylaxis, have been reviewed in detail with the patient and prior to discharge. This includes indication, common adverse reactions, drug interactions, and medication administration. Medication counseling has been employed using the teach-back method to ensure understanding. - Outcome: The patient and have demonstrated understanding of the medications. Additional comments: -counseled patient and -informed them of [facility] An[facility] ran by Dr Bowie -asked about alcohol consumption- cautioned limited use Thank you for allowing pharmacy to be involved in the care of this patient. Please call [phone] with any additional questions
[2022-01-28] MEDS ORDERED: LOSARTAN POTASSIUM 50 MG TAB PO SCH (09:00)
[2022-01-30 01:21] LABS: Protein S Functional(Activity) 98 % (70-150)
== END 2022-01-27 15:36 | disposition home or self-care (01) | DRG 64 ==
LOC: ED 08:51 → 2S 11:04 → SUATTDRO 11:04 → 2S 12:10